=== PATIENT | female | born 1935 | race Caucasian/White ===

== ENCOUNTER 2019-03-23 19:54 | Emergency (ER) | payer OTHER ==
[~2019-03-23] VITALS: Ht 152.4 cm; Wt 65.0 kg
[2019-03-23 20:00] VITALS: Ht 152.4 cm; Wt 65.0 kg
[2019-03-23] MEDS ORDERED: LIDOCAINE 1% (MDV) 20 ML INJ SC ONE (20:30)
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
[2019-03-23 21:30] VITALS: BP 138/73; PULSE 87; RESP 18
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
[2019-03-23] MEDS ORDERED: IBUP800T48 PO (21:53)
== END 2019-03-23 22:01 | disposition home or self-care (01) ==
LOC: E/R 19:54
DX: S06.0X0A Concussion without loss of consciousness, initial encounter (principal); S01.511A Laceration without foreign body of lip, initial encounter; S51.801A Unspecified open wound of right forearm, initial encounter; I10 Essential (primary) hypertension; S60.222A Contusion of left hand, initial encounter; V43.52XA Car driver injured in collision with other type car in traffic accident, initial encounter
CPT/HCPCS: 70450; 72125